=== PATIENT | male | born 1990 | race Caucasian/White ===

== ENCOUNTER 2017-01-04 15:27 | Emergency (ER) | payer BC, OTHER ==
[2017-01-04] MEDS ORDERED: Ondansetron ODT 4 MG TAB ONE (16:05)
[2017-01-04 16:09] LABS: Bilirubin Negative (Negative); Blood, Urine Negative (Negative); Clarity Clear (Clear); Glucose, Urine (Dipstick) Negative (Negative); Leukocyte Negative (Negative); Nitrite Negative (Negative); Protein, Urine (Dipstick) Trace mg/dL (Neg-Trace); Specific Gravity, Urine 1.025 (1.005-1.030); Urobilinogen 0.2 mg/dL (0.2-1.0)
== END 2017-01-04 16:10 | disposition home or self-care (01) ==
LOC: NAV ERS 15:27
DX: K52.9 Noninfective gastroenteritis and colitis, unspecified (principal)
CPT/HCPCS: 81003; 99284; Q0162